=== PATIENT | female | born 1985 ===

== ENCOUNTER 2018-10-19 07:39 | Emergency (ER) | payer SELFPAY ==
[2018-10-19 07:56] VITALS: BP 111/73
--- NOTE | 2018-10-19 08:24 | UC ---
UC General HPI - HPI Summary HPI Summary: States symptoms started yesterday with mid/upper back mainly on left side, spasms and feels like it is 'seizing up'. NOrmally works out routinely but has been working a lot lately and hasn't worked out in 3 weeks. Had a massage a few days ago. No trauma or falls. Tried an old muscle relaxer - SOMA with no improvement. Had a hard time sleeping because she could not get comfortable. No urinary symptoms. No frequency or dysuria. No fevers. MEds: Reviewed - History of Current Complaint Chief Complaint: UCBackPain Stated Complaint: BACK PAIN Time Seen by Provider: 10/19/18 07:57 Hx Last Menstrual Period: 10/15/18 Pain Intensity: 8 - Allergy/Home Medications Allergies/Adverse Reactions: Allergies Allergy/AdvReac Type Severity Reaction Status Date / Time No Known Allergies Allergy Verified 10/19/18 07:56 Home Medications: Home Medications Etonogest/Eth.estradiol (Nf) [Nuvaring Vaginal Ring] 10/19/18 [History] Ibuprofen TAB* [Motrin TAB* 600 MG] 800 mg PO Q6H PRN 10/19/18 [History Confirmed 10/19/18] Multivitamins/Minerals TAB* [Theragran/minerals TAB*] 1 tab PO DAILY 10/19/18 [ History Confirmed 10/19/18] PMH/Surg Hx/FS Hx/Imm Hx Previously Healthy: Yes - Surgical History Surgical History: Yes Surgery Procedure, Year, and Place: Lasik eye surgery - Social History Alcohol Use: Occasionally Substance Use Type: None Smoking Status (MU): Never Smoked Tobacco - Immunization History Most Recent Influenza Vaccination: none Review of Systems All Other Systems Reviewed And Are Negative: Yes Physical Exam Triage Information Reviewed: Yes Appearance: Well-Appearing Vital Signs: Initial Vital Signs Temp 98.7 F 10/19/18 07:51 Pulse 86 10/19/18 07:51 Resp 16 10/19/18 07:51 BP 111/73 10/19/18 07:51 Pulse Ox 97 10/19/18 07:51 Vital Signs Reviewed: Yes Musculoskeletal Exam: Other - pain and tenderness in mid/upper paraspinal on left side thoracic region - pain with rotation and movement of left shoulder joint Course/Dx - Course Course Of Treatment: This is a 33 yr old with hx of muscle spasm/pain presents with recurrence Assessment left paraspinal thoracic strain Plan Recommend Flexeril as needed for muscle spasms Naproxen 2x/day for 2 weeks or less if pain improves - take with food REcommend gentle stretches and exercises Recommend alternating with heat and ice Referral to physical therapy if symptoms persist If symptoms persist or worsen, recommend follow up with your primary care physician for further work up - Diagnoses Provider Diagnosis: Spasm of thoracic back muscle Discharge - Sign-Out/Discharge Documenting (check all that apply): Patient Departure All imaging exams completed and their final reports reviewed: No Studies - Discharge Plan Condition: Good Disposition: HOME Prescriptions: Cyclobenzaprine TAB* [Flexeril 10 MG TAB*] 10 mg PO TID PRN #30 tab PRN Reason: Spasms Naproxen [Naproxen 500 mg tab] 500 mg PO BID #28 tablet. Patient Education Materials: Thoracic Back Strain (ED) Referrals: Josiane Alaniz NP [Primary Care Provider] - Additional Instructions: Recommend Flexeril as needed for muscle spasms Naproxen 2x/day for 2 weeks or less if pain improves - take with food REcommend gentle stretches and exercises Recommend alternating with heat and ice Referral to physical therapy if symptoms persist If symptoms persist or worsen, recommend follow up with your primary care physician for further work up - Billing Disposition and Condition Condition: GOOD Disposition: Home
== END 2018-10-19 08:27 | disposition home or self-care (01) ==
LOC: UCEAST 07:39
DX: M62.830 Muscle spasm of back (principal)
CPT/HCPCS: 99212; G0463